=== PATIENT | male | born 1965 | race Caucasian/White ===

== ENCOUNTER 2018-01-10 06:55 | Day surgery (SDC) | payer OTHER, SELFPAY ==
[2018-01-10 07:14] VITALS: BP 117/77; PULSE 85; RESP 18; TEMP 36.6; O2SAT 100; BMI 24.0
--- NOTE | 2018-01-10 07:42 | H&P.OPEN ---
Past Medical/Surgical History - Planned Operation Planned Operative Procedure/s: colonoscopy open access Date of Operative Procedure: 01/10/18 Permit Signed: No S.O.S: No Is This Patient Having a Total Joint: No - Previous Hospitalizations/Surgeries HX Hospitalizations: No HX of Surgeries: deviated septum Any Problems With Anesthesia: No You/Your Family Experience Fever (Hyperthermia) With Anes: No Cholinesterase deficiency: No - Cardiovascular Hx Chest Pain within Last 2 months: No Hx of Irregular Heartbeat and/or Afib: No Hx Heart Attack: No Hx Congestive Heart Failure: No Hx Rheumatic Fever: No Hx Hypertension: No Hx Internal Defibrillator: No Hx Pacemaker: No Hx Cardiac Catheterization: No Hx Cardiac Surgery/Stents/Etc.: No Hx Stress Test: No HX Edema: No Hx Pain in Legs when Walking/Leg Cramps: No - Respiratory Chronic Cough: No HX of Shortness of Breath: No Hoarseness: No Hx Chronic Obstructive Pulmonary Disease (COPD): No Hx Asthma: No Hx Emphysema: No Hx Sleep Apnea: No Hx Oxygen Use at Home: No Hx Respiratory Tract Infection/Cold (presently): Yes - cold 2 weeks ago/resolved Do You Snore Loudly (louder than talking or can be heard): Yes Do You Often Feel Tired/ Fatigued/ Sleepy Dring Daytime?: Yes Has Anyone Observed You Stop Breathing During Sleep?: No Result (for STOP score): Positive Hx Smoking: No Smoking Status: Never smoker - Gastrointestinal Hx Gastroesophageal Reflux: Yes Controlled With Meds: No - no meds for 2 weeks Hx Gastrointestinal Disorders: No Hx Gastrointestinal Bleed: No Hx Ulcer: No Hx Hiatal Hernia: No Difficulty Chewing/Swallowing: No Recent Onset of Swallowing Problems: No Special diet followed at home: No Hx Unplanned Weight Loss of 20#: No HX Unplanned Weight Gain of 20#: No - Neurological Hx Seizures: No HX Syncope/Blackout Spells/Unconsciousness: No Hx CVA/Stroke: No Hx Transient Ischemic Attacks (TIA): No Hx Multiple Sclerosis: No Hx Parkinson's Disease: No Hx Head/Neck Injury: No Hx Headaches: No Hx Back Injury/Pain: No Recent Onset of Speech Difficulty: No Restless Legs: Yes Does patient have nerve stimulator: No Patient instructed to have device shut off: No Rep notified?: No - Blood Disorder Hx Leukemia: No Bleeding Tendencies: No Hx Deep Vein Thrombosis: No Hx High Cholesterol: No Blood Transmitted Disease: No Hx Hepatitis: No Hx Cirrhosis: No Hx Anemia: No Hx Blood Disorders: No - Genitourinary Hx Renal Disease: No - Musculoskeletal Hx Arthritis: No Hx Rheumatoid Arthritis: No Hx Gout: No Recent Onset of an Orthopedic Problem: No - Endocrine Hx Diabetes: No Thyroid Disease: No Hx Steroid Therapy: No - Psycho/Social Hx Substance Use: No Hx Alcohol Use: No Hx Anxiety: No Hx Depression: Yes - on med Mental Illness: No Hx Dementia: No - Miscellaneous Hx Cancer: No Recent Exposure to Contagious Disease: No Active MRSA: No Hx of C-Diff: No Any Loose Teeth: No Allergies Sulfa (Sulfonamide Antibiotics) Allergy (Verified 01/10/18 07:13) Other Home Medications Medication Instructions Recorded Isotretinoin [Absorica] 40 mg PO TU 01/07/18 Vortioxetine Hydrobromide 10 mg PO DAILY 01/07/18 [Brintellix] - Discharge Is Pt Admitted From a Custodial, or a Custodial: No Who Could Help: family After D/C, Where Do you Plan to Go: Return Home - Physical Exam General: Alert, Oriented x3, Cooperative Lungs: Normal air movement Cardiovascular: Regular rate, Regular Rhythm Abdomen: Soft, Non Tender, Non-Distended Vital Signs Temp Pulse Resp BP Pulse Ox 98 F 85 18 117/77 100 01/10/18 07:14 01/10/18 07:14 01/10/18 07:14 01/10/18 07:14 01/10/18 07:14 Oxygen Delivery Method Room Air Weight: 171 lb 15.369 oz Body Mass Index (BMI) 24.0 Assessment/Plan 52-year-old male for screening colonoscopy 1. Patient reports he has never had a colonoscopy in the past. He is not having any issues at this time. He complains of no abdominal pain or blood in his stool and he has no inadvertent weight loss. He has no family history of colon cancer. 2. I explained endoscopy in detail to the patient. I explained the risks including but not limited to stroke or heart attack with anesthesia, perforation of the GI tract, bleeding, infection. I explained that any of these could necessitate further emergency surgery. The patient understands and all questions were answered sufficiently. The patient wishes to proceed with procedure. Tee Santiago MD Pager: [facility] [address], [address] [place] [address] Office: Surgery Risks - Colonoscopy Risks Include but are not Limited To: Risks include but are not limited to: Bleeding, perforation requiring further surgery, inability to complete colonoscopy requiring barium enema.
[2018-01-10 08:12] VITALS: BP 100/64; BP 117/77; PULSE 63; RESP 16; TEMP 36.7; O2SAT 98
[2018-01-10 08:15] VITALS: BP 111/75; BP 117/77; PULSE 60; RESP 16; O2SAT 98
[2018-01-10 08:20] VITALS: BP 112/75; BP 117/77; PULSE 57; RESP 16; O2SAT 97
[2018-01-10 08:25] VITALS: BP 113/68; BP 117/77; RESP 18; TEMP 36.7; O2SAT 97
[2018-01-10 08:38] VITALS: BP 117/77
--- NOTE | 2018-01-10 09:15 | PCM.OPRPT ---
Problem List (1) Screen for colon cancer Status: Acute Report of Operation Date of Procedure: 01/10/18 Pre-Operative Diagnosis: Screening colonoscopy Post-Operative Diagnosis: Normal colonoscopy Surgery/Procedure Performed:: Colonoscopy Description of Procedure: The major risks and benefits associated with the procedure were explained to the patient in detail. The patient verbalized understanding and agreement with the same. The patient was brought to the endoscopy suite. After adequate sedation was achieved, the patient was placed in the left lateral decubitus position and a digital rectal exam was performed. This examination was within normal limits. A well-lubricated colonoscope was then inserted into the rectum and advanced under direct visualization to the level of the cecum. The bowel prep was good. The cecum was identified by both visual and anatomic landmarks. A photograph was taken of the end of the cecum. The scope was then fully withdrawn while examining the color, texture, anatomy and integrity of the mucosa from the cecum to the anal canal. The findings were consistent with normal colonic mucosa. Over 6 minutes were taken to examine the colonic mucosa. Upon reaching the rectum the scope was retroflexed to examine the distal rectal vault. The scope was then straightened and was completely retrieved upon exiting the anal canal and the procedure was terminated. The patient was then transferred to the recovery room in stable condition. Recommendations for follow up: 10 years
== END 2018-01-10 08:40 | disposition home or self-care (01) ==
LOC: EN 06:56 → AC 06:58
PROVIDERS: Family Provider Physician Assistant; PCP Physician Assistant; Visit Provider Surgery
PROC: 0DJD8ZZ Inspection of Lower Intestinal Tract, Via Natural or Artificial Opening Endoscopic (ICD-10-PCS; CPT 45378; principal; 2018-01-10 07:55)
DX: Z12.11 Encounter for screening for malignant neoplasm of colon (principal); K21.9 Gastro-esophageal reflux disease without esophagitis; F32.9 Major depressive disorder, single episode, unspecified
CPT/HCPCS: 45378; J7120

== ENCOUNTER → 2018-01-29 08:37 | Outpatient (CLI) | payer OTHER, SELFPAY | PROVIDERS: Visit Provider Nurse Practitioner Family | DX: R19.7 Diarrhea, unspecified (principal) | CPT/HCPCS: 87177; 87209; 87493; 87506 ==

== ENCOUNTER → 2018-02-19 13:56 | Outpatient (CLI) | payer OTHER, SELFPAY ==
[2018-02-19 16:04] LABS: CRP < 2.90 mg/L (0.0-3.0)
[2018-02-21 16:09] LABS: Endomysial Antibody IgA Negative (Negative)
[2018-02-21 17:02] LABS: Immunoglobulin A 168 mg/dL (90-386); t-Transglutaminase IgA <2 U/mL (0-3)
== END ==
PROVIDERS: Family Provider Physician Assistant; PCP Physician Assistant; Visit Provider Internal Medicine Gastroenterology
DX: R19.7 Diarrhea, unspecified (principal)
CPT/HCPCS: 36415; 82784; 83516; 86140; 86255

== ENCOUNTER → 2018-05-01 14:37 | Outpatient (CLI) | payer OTHER, SELFPAY ==
[2018-05-01 16:09] LABS: Absolute Lymphocyte Count 1.62 X10^3/ul (0.83-4.51); Absolute Neutrophil Count 4.6 X10^3/uL (2.0-7.7); Basophil# 0.01 X10^3/uL; Basophil% 0.1 % (0-1); Eosinophil# 0.07 X10^3/uL; Hematocrit 47.4 % (40-54); Lymphocyte # 1.62 X10^3/ul (4.0); Lymphocyte % 23.6 % (19-41); Mean Corp Hgb Conc 33.8 g/gl (32-36); Mean Corpuscular Hgb 30.4 pg (27.0-32.0); Mean Corpuscular Volume 89.9 fL (80-94); Mean Platelet Vol. 11.8 fl (6.2-12.0); Monocyte# 0.55 X10^3/uL; Neutrophil % 67.2 % (47-70); Platelet Count 182 K/mm3 (150-450); RBC Distribution Width CV 12.5 % (11.6-14.6); RBC Distribution Width SD 40.7 fl (35.1-43.9); Red Blood Count 5.27 M/mm3 (4.6-6.2); White Blood Count 6.9 K/mm3 (4.4-11.0)
[2018-05-01 16:12] LABS: POSITIVE COUNT NO; POSITIVE DIFFERENTIAL NO; POSITIVE MORPHOLOGY NO
[2018-05-01 16:30] LABS: ALB/GLOB Ratio 1.2 RATIO (0.9-2.4); AST(SGOT) 20 U/L (15-37); BUN 14 mg/dL (7-18); BUN/Creat Ratio 11.4 RATIO (10-20); Calcium,Total 9.1 mg/dL (8.5-10.1); Creatinine, Serum 1.23 mg/dL (0.70-1.30); EST Glomerular Filtration Rate 66 mL/min (>60); Est Glom Filt Rate - Afr Amer 80 mL/min (>60); Globulin 3.3 g/dL (2.2-4.2); Glucose 97 mg/dL (74-106); Protein, Total 7.3 g/dL (6.4-8.2)
[2018-05-01 16:31] LABS: Alanine Aminotransfer ALT/SGPT 27 U/L (16-61); Alkaline Phosphatase 108 U/L (45-117); Anion Gap 6 (5-15); Chloride 107 mmol/L (98-107); Potassium 4.1 mmol/L (3.5-5.1); Sodium Level 142 mmol/L (136-145); T4 Free Direct 1.05 ng/dL (0.76-1.46); Thyroid Stim Hormone (TSH) 1.07 uIU/mL (0.358-3.74)
[2018-05-02 08:15] LABS: Vitamin B12 474 pg/mL (211-911)
== END ==
PROVIDERS: Family Provider Internal Medicine; PCP Internal Medicine; Visit Provider Internal Medicine
DX: K52.9 Noninfective gastroenteritis and colitis, unspecified (principal)
CPT/HCPCS: 36415; 80053; 82306; 82607; 84439; 84443; 85025

== ENCOUNTER → 2018-06-25 15:34 | Outpatient (CLI) | payer OTHER, SELFPAY ==
[2018-07-01 09:44] LABS: Fats, Neutral Increased (.); Fats, Total Increased (.)
== END ==
PROVIDERS: Family Provider Internal Medicine; PCP Internal Medicine; Visit Provider Internal Medicine Gastroenterology
DX: R19.7 Diarrhea, unspecified (principal)
CPT/HCPCS: 82705

== ENCOUNTER → 2018-07-08 13:43 | Outpatient (CLI) | payer OTHER, SELFPAY | PROVIDERS: Family Provider Internal Medicine; PCP Internal Medicine; Referring Provider Internal Medicine Gastroenterology; Visit Provider Internal Medicine Gastroenterology | DX: R19.5 Other fecal abnormalities (principal) ==

== ENCOUNTER → 2018-07-16 14:50 | Outpatient (CLI) | payer OTHER, SELFPAY ==
--- NOTE | 2018-07-16 15:12 | CT_ITS ---
STUDY: CT ABDOMEN WITH CONTRAST REASON FOR EXAM: Male, 52 years old. Epigastric pain RADIATION DOSAGE (If Supplied By Facility): CTDIvol = ( 13.745 ) mGy, DLP = ( 610.95 ) mGycm TECHNIQUE: Transaxial images were obtained post I.V. administration of 100 ml of Isovue 300 contrast, and oral contrast. Sagittal and coronal images were reconstructed. Individualized dose optimization techniques were used for this CT. COMPARISON: None. FINDINGS: The visualized lung bases are unremarkable. The visualized portions of the heart are within normal limits. Within segment 4 of the liver there is a 1.9 x 1.3 cm peripherally enhancing rounded focus within appearance most consistent with an underlying hemangioma. There are two additional too small to characterize low-attenuation foci within the liver. Normal gallbladder and extrahepatic biliary system. Normal spleen. Normal pancreas. Normal bilateral adrenal glands. Normal right kidney. Within the left kidney there is a 1.8 x 1.7 cm round low-attenuation focus with a Hounsfield units of 38. There is an additional 1.4 x 1.2 cm round low-attenuation focus within the left kidney with a Hounsfield units of 36. Normal visualized stomach. Normal small intestine. Normal colon. The appendix is visualized and appears normal. Normal abdominal aorta. Normal inferior vena cava. Normal retroperitoneum. Normal abdominal wall. There are diffuse degenerative changes of the visualized lumbar spine. There are indeterminate round partially sclerotic foci within the sacrum measuring up to 2.2 x 1.6 cm and 2.[address]/Abdomen WITH IV Contrast IMPRESSION: Peripherally enhancing 1.9 x 1.3 cm focus associated with 2 small too characterize low-attenuation foci within the liver, may reflect underlying hemangiomas, recommend an abdominal MRI with contrast for further characterization. Indeterminate round low-attenuation foci within the left kidney that likely reflect underlying cysts, these may be further characterized with the abdominal MRI recommended above. Indeterminate sclerotic foci within the sacrum may be secondary to underlying hemangiomas, again an MRI may be useful for further characterization. Electronically Signed: Malissa Ingram MD at 16:02 EDT Tel , Service support ,
== END ==
PROVIDERS: Family Provider Internal Medicine; PCP Internal Medicine; Referring Provider Internal Medicine Gastroenterology; Visit Provider Internal Medicine Gastroenterology
DX: R10.9 Unspecified abdominal pain (principal); R19.5 Other fecal abnormalities
CPT/HCPCS: 74160; Q9967

== ENCOUNTER → 2018-08-13 12:28 | Outpatient (CLI) | payer OTHER, SELFPAY ==
--- NOTE | 2018-08-13 12:31 | MRI_ITS ---
STUDY: MRI ABDOMEN WITH AND WITHOUT CONTRAST REASON FOR EXAM: Male, 52 years old. Abdominal pain with bloating, diarrhea, liver lesion detected on CT of 07/16/2018 TECHNIQUE: Standardized fat and water weighted pulse sequences were obtained in all 3 orthogonal planes post contrast administration. 8 ml of Gadavist contrast material was administered intravenously for the contrast portion of the examination. COMPARISON: 07/16/2018 FINDINGS: Base of the chest is unremarkable. In the left hepatic lobe, there are 2 T2 bright lesions correlating to low-density cystic lesions evident on recent CT. Both lesions demonstrate restricted diffusion. Following IV contrast, there is peripheral, nodular enhancement with progressive filling on later images, compatible with hemangiomata. Similar but less distinct lesion in the right hepatic lobe has a similar enhancement pattern. Normal gallbladder and extrahepatic biliary system. Normal spleen. Normal pancreas. Normal bilateral adrenal glands. Normal right kidney. In the central left kidney, there is a 1.3 cm high T1, high T2 signal intensity lesion which does not demonstrate significant contrast enhancement. Immediately lateral to this lesion, there is a nonenhancing simple cyst. Visualized hollow viscus structures are unremarkable. No retroperitoneal adenopathy or bone marrow edema. There are degenerative changes at L5-S1. Sclerotic lesion evident on prior CT involving the sacrum is not clearly identified on this exam. MRI/MRI Abd WITH and W/O Contrast IMPRESSION: 1. Multiple hemangiomata of the liver, correlating lesions evident on prior CT. 2. Proteinaceous/hemorrhagic left renal cyst (Bosniak 2). Bosniak I cystic lesion of the left mid kidney laterally. No solid or suspicious renal masses. 3. The sclerotic lesion of the sacrum described on prior CT is not evaluated on this exam. Electronically Signed: Maxim Myers MD at 20:00 EST , Service support ,
== END ==
PROVIDERS: Family Provider Internal Medicine; PCP Internal Medicine; Referring Provider Internal Medicine Gastroenterology; Visit Provider Internal Medicine Gastroenterology
DX: D18.03 Hemangioma of intra-abdominal structures (principal); R93.2 Abnormal findings on diagnostic imaging of liver and biliary tract
CPT/HCPCS: 74183; A9585

== ENCOUNTER → 2019-06-24 09:24 | Outpatient (CLI) | payer OTHER, SELFPAY ==
[2019-06-24 08:55] VITALS: BMI 24.5
[2019-06-24 12:14] LABS: Hematocrit 44.9 % (40-54); Hemoglobin 14.7 g/dL (13.0-16.5); Mean Corp Hgb Conc 32.7 g/dL (32-36); Mean Corpuscular Hgb 29.8 pg (27.0-32.0); Mean Corpuscular Volume 91.1 fL (80-94); Mean Platelet Vol. 11.6 fl (6.2-12.0); Platelet Count 158 K/mm3 (150-450); RBC Distribution Width CV 12.3 % (11.6-14.6); RBC Distribution Width SD 40.9 fl (35.1-43.9); Red Blood Count 4.93 M/mm3 (4.6-6.2); White Blood Count 6.6 K/mm3 (4.4-11.0)
[2019-06-24 12:44] LABS: ALB/GLOB Ratio 1.2 RATIO (0.9-2.4); AST(SGOT) 17 U/L (15-37); Alanine Aminotransfer ALT/SGPT 23 U/L (16-61); Albumin, Serum 3.8 g/dL (3.2-5.0); Alkaline Phosphatase 115 U/L (45-117); Anion Gap 4 (5-15); BUN 15 mg/dL (7-18); BUN/Creat Ratio 12.1 RATIO (10-20); Calcium,Total 8.9 mg/dL (8.5-10.1); Chloride 109 mmol/L (98-107); Cholesterol 156 mg/dL (200); Creatinine, Serum 1.24 mg/dL (0.70-1.30); EST Glomerular Filtration Rate 65 mL/min (>60); Est Glom Filt Rate - Afr Amer 79 mL/min (>60); Globulin 3.1 g/dL (2.2-4.2); Glucose 91 mg/dL (74-106); High Density Lipoprotein 54 mg/dL; PSA,Total - Annual Screen 3.93 ng/mL (0.00-4.00); Potassium 4.2 mmol/L (3.5-5.1); Protein, Total 6.9 g/dL (6.4-8.2); Sodium Level 141 mmol/L (136-145); Thyroid Stim Hormone (TSH) 0.93 uIU/mL (0.358-3.74); Triglycerides 70 mg/dL; Very Low Density Lipoprotein 14 mg/dL (5-40)
== END ==
PROVIDERS: Family Provider Internal Medicine; PCP Internal Medicine; Visit Provider Nurse Practitioner Family
DX: F41.8 Other specified anxiety disorders (principal)
CPT/HCPCS: 36415; 80053; 80061; 84153; 84443; 85027; G0103

== ENCOUNTER → 2020-08-02 10:01 | Outpatient (CLI) | payer OTHER, SELFPAY ==
[2020-08-02 09:17] VITALS: BMI 25.1
[2020-08-02 12:15] LABS: Absolute Lymphocyte Count 1.63 X10^3/uL (0.83-4.51); Absolute Neutrophil Count 5.6 X10^3/uL (2.0-7.7); Basophil# 0.03 X10^3/uL; Basophil% 0.4 % (0-1); Eosinophil# 0.15 X10^3/uL; Eosinophils% 1.9 % (0-5); Hematocrit 47.5 % (40-54); Hemoglobin 15.7 g/dL (13.0-16.5); Lymphocyte # 1.63 X10^3/ul (4.0); Lymphocyte % 20.1 % (19-41); Mean Corp Hgb Conc 33.1 g/dL (32-36); Mean Corpuscular Hgb 29.8 pg (27.0-32.0); Mean Corpuscular Volume 90.1 fL (80-94); Mean Platelet Vol. 10.8 fl (6.2-12.0); Monocyte# 0.62 X10^3/uL; Monocyte% 7.7 % (0-10); NRBC Flagged by Analyzer 0 % (0-5); Neutrophil # 5.63 X10^3/uL (2.7-7.7); Neutrophil % 69.5 % (47-70); Platelet Count 193 K/mm3 (150-450); RBC Distribution Width CV 12.1 % (11.6-14.6); RBC Distribution Width SD 39.9 fl (35.1-43.9); Red Blood Count 5.27 M/mm3 (4.6-6.2); White Blood Count 8.1 K/mm3 (4.4-11.0)
[2020-08-02 12:42] LABS: ALB/GLOB Ratio 1.2 RATIO (0.9-2.4); AST(SGOT) 23 U/L (15-37); Alanine Aminotransfer ALT/SGPT 34 U/L (16-61); Alkaline Phosphatase 103 U/L (45-117); Anion Gap 4 (5-15); BUN 20 mg/dL (7-18); BUN/Creat Ratio 15.6 RATIO (10-20); Calcium,Total 9.2 mg/dL (8.5-10.1); Chloride 107 mmol/L (98-107); Cholesterol 199 mg/dL (200); Creatinine, Serum 1.28 mg/dL (0.70-1.30); EST Glomerular Filtration Rate 62 mL/min (>60); Est Glom Filt Rate - Afr Amer 75 mL/min (>60); Globulin 3.4 g/dL (2.2-4.2); Glucose 87 mg/dL (74-106); High Density Lipoprotein 54 mg/dL; PSA,Total - Annual Screen 3.85 ng/mL (0.00-4.00); Potassium 4.5 mmol/L (3.5-5.1); Protein, Total 7.4 g/dL (6.4-8.2); Sodium Level 139 mmol/L (136-145); Thyroid Stim Hormone (TSH) 1.33 uIU/mL (0.358-3.74); Triglycerides 73 mg/dL; Very Low Density Lipoprotein 15 mg/dL (5-40)
== END ==
PROVIDERS: PCP Internal Medicine; Referring Provider Nurse Practitioner Family; Visit Provider Nurse Practitioner Family
DX: Z00.00 Encounter for general adult medical examination without abnormal findings (principal)
CPT/HCPCS: 36415; 80053; 80061; 84153; 84443; 85025; G0103

== ENCOUNTER → 2020-08-25 09:30 | Outpatient (CLI) | payer OTHER, SELFPAY ==
[2020-08-02 09:17] VITALS: BMI 25.1
[2020-08-26 13:46] LABS: Semen Analysis Post Vas ABSENT
== END ==
PROVIDERS: PCP Internal Medicine; Visit Provider Nurse Practitioner Family
DX: Z98.52 Vasectomy status (principal)
CPT/HCPCS: 89321

== ENCOUNTER → 2021-08-04 09:22 | Outpatient (CLI) | payer OTHER, SELFPAY ==
[2021-08-04 12:36] LABS: Absolute Lymphocyte Count 1.74 X10^3/uL (0.83-4.51); Absolute Neutrophil Count 3.9 X10^3/uL (2.0-7.7); Basophil# 0.04 X10^3/uL; Basophil% 0.6 % (0-1); Eosinophils% 1.6 % (0-5); Hematocrit 46.3 % (40-54); Hemoglobin 15.6 g/dL (13.0-16.5); Lymphocyte # 1.74 X10^3/ul (0.83-4.51); Lymphocyte % 27.3 % (19-41); Mean Corp Hgb Conc 33.7 g/dL (32-36); Mean Corpuscular Hgb 30.4 pg (27.0-32.0); Mean Corpuscular Volume 90.3 fL (80-94); Mean Platelet Vol. 10.9 fl (6.2-12.0); Monocyte# 0.59 X10^3/uL; Monocyte% 9.3 % (0-10); NRBC Flagged by Analyzer 0 % (0-5); Neutrophil # 3.89 X10^3/uL (2.7-7.7); Platelet Count 163 K/mm3 (150-450); RBC Distribution Width CV 11.9 % (11.6-14.6); RBC Distribution Width SD 39.4 fl (35.1-43.9); Red Blood Count 5.13 M/mm3 (4.6-6.2); White Blood Count 6.4 K/mm3 (4.4-11.0)
[2021-08-04 12:49] LABS: ALB/GLOB Ratio 1.2 RATIO (0.9-2.4); Albumin, Serum 3.7 g/dL (3.2-5.0); Anion Gap 6 (5-15); Chloride 108 mmol/L (98-107); EST Glomerular Filtration Rate 59 mL/min (>60); Globulin 3.2 g/dL (2.2-4.2); Potassium 4.1 mmol/L (3.5-5.1); Protein, Total 6.9 g/dL (6.4-8.2); Sodium Level 142 mmol/L (136-145); Very Low Density Lipoprotein 21 mg/dL (5-40)
[2021-08-04 13:45] LABS: AST(SGOT) 20 U/L (15-37); Alanine Aminotransfer ALT/SGPT 25 U/L (16-61); Alkaline Phosphatase 92 U/L (45-117); BUN 17 mg/dL (7-18); Cholesterol 160 mg/dL (200); Creatinine, Serum 1.34 mg/dL (0.70-1.30); Est Glom Filt Rate - Afr Amer 71 mL/min (>60); Glucose 86 mg/dL (74-106); High Density Lipoprotein 47 mg/dL; PSA,Total - Annual Screen 3.97 ng/mL (0.00-4.00); Thyroid Stim Hormone (TSH) 1.87 uIU/mL (0.358-3.74); Triglycerides 106 mg/dL
== END ==
PROVIDERS: PCP Internal Medicine; Referring Provider Nurse Practitioner Family; Visit Provider Nurse Practitioner Family
DX: Z00.00 Encounter for general adult medical examination without abnormal findings (principal)
CPT/HCPCS: 36415; 80053; 80061; 84153; 84443; 85025; G0103

== ENCOUNTER → 2022-05-18 | Outpatient (CLI) | payer OTHER, SELFPAY ==
[2022-05-18 12:44] LABS: Absolute Lymphocyte Count 1.58 X10^3/uL (0.83-4.51); Absolute Neutrophil Count 4.2 X10^3/uL (2.0-7.7); Basophil# 0.02 X10^3/uL; Basophil% 0.3 % (0-1); Eosinophil# 0.09 X10^3/uL; Eosinophils% 1.4 % (0-5); Hematocrit 44.3 % (40-54); Hemoglobin 14.8 g/dL (13.0-16.5); Lymphocyte # 1.58 X10^3/ul (0.83-4.51); Lymphocyte % 24.5 % (19-41); Mean Corp Hgb Conc 33.4 g/dL (32-36); Mean Corpuscular Hgb 30.3 pg (27.0-32.0); Mean Corpuscular Volume 90.8 fL (80-94); Mean Platelet Vol. 10.9 fl (6.2-12.0); Monocyte% 7.7 % (0-10); NRBC Flagged by Analyzer 0 % (0-5); Neutrophil # 4.24 X10^3/uL (2.7-7.7); Neutrophil % 65.6 % (47-70); Platelet Count 194 K/mm3 (150-450); RBC Distribution Width CV 12.8 % (11.6-14.6); RBC Distribution Width SD 42.4 fl (35.1-43.9); Red Blood Count 4.88 M/mm3 (4.6-6.2); White Blood Count 6.5 K/mm3 (4.4-11.0)
[2022-05-18 12:55] LABS: ALB/GLOB Ratio 1.3 RATIO (0.9-2.4); AST(SGOT) 19 U/L (15-37); Alanine Aminotransfer ALT/SGPT 22 U/L (16-61); Albumin, Serum 3.9 g/dL (3.2-5.0); Alkaline Phosphatase 76 U/L (45-117); Anion Gap 4 (5-15); BUN 12 mg/dL (7-18); BUN/Creat Ratio 9.2 RATIO (10-20); Calcium,Total 9.1 mg/dL (8.5-10.1); Chloride 107 mmol/L (98-107); Cholesterol 152 mg/dL (200); Creatinine, Serum 1.31 mg/dL (0.70-1.30); EST Glomerular Filtration Rate 60 mL/min (>60); Est Glom Filt Rate - Afr Amer 73 mL/min (>60); Globulin 2.9 g/dL (2.2-4.2); Glucose 95 mg/dL (74-106); High Density Lipoprotein 54 mg/dL; PSA,Total - Annual Screen 7.32 ng/mL (0.00-4.00); Potassium 4.5 mmol/L (3.5-5.1); Protein, Total 6.8 g/dL (6.4-8.2); Sodium Level 139 mmol/L (136-145); Thyroid Stim Hormone (TSH) 1.77 uIU/mL (0.358-3.74); Triglycerides 82 mg/dL; Very Low Density Lipoprotein 16 mg/dL (5-40)
== END | disposition home or self-care (01) ==
LOC: BIMLAB 10:13
PROVIDERS: PCP Internal Medicine; Referring Provider Nurse Practitioner Family; Visit Provider Nurse Practitioner Family
DX: Z00.00 Encounter for general adult medical examination without abnormal findings (principal)
CPT/HCPCS: 36415; 80053; 80061; 84153; 84443; 85025; G0103

== ENCOUNTER → 2022-07-03 | Outpatient (CLI) | payer OTHER, SELFPAY ==
--- NOTE | 2022-07-03 08:00 | PROSBIL_PTH ---
PATIENT: MOLLY PAINTING LOC: [facility] U#:[id number] AGE/SX: 56/M ROOM: RE07/03/[address]: Dr. Victor M Cherry MD : 1965 BED: DIS: 07/03/2022 SPEC #: [id number] RECD: 07/03/22 16:13 STATUS: MIGUEL ANGEL MUSE #: [id number] SOLE: 07/03/22 08:[address]: Victor M Cherry DEPT: SURGICAL PATHOLOGY RECD BY: Sunil Pineda ENTERED: 07/04/22 07:48 SP TYPE: PROST BX MARLEE DR: Dr. Krystle Fleming MD Tissues: A - PROSTATE RIGHT B - PROSTATE RIGHT C - PROSTATE RIGHT D - PROSTATE LEFT E - PROSTATE LEFT F - PROSTATE LEFT Procedures: PROSTATE BX HEADER OPERATION: Prostate biopsy PRE-OP DIAGNOSIS: Elevated PSA R97.20 TISSUE SUBMITTED: A - Right apex, B - Right mid, C - Right base, D - Left apex, E - Left mid, F - Left base MICROSCOPIC DIAGNOSIS A. Right prostate, apex, core biopsy: Prostatic tissue, negative for malignancy. B. Right prostate, mid, core biopsy: Prostatic tissue, negative for malignancy. Focal minimal acute and chronic inflammation. C. Right prostate, base, core biopsy: Prostatic tissue, negative for malignancy. D. Left prostate, apex, core biopsy: Focal minimal high-grade prostatic intraepithelial neoplasia (HGPIN). E. Left prostate, mid, core biopsy: Focal high-grade prostatic intraepithelial neoplasia (HGPIN). F. Left prostate, base, core biopsy: Focal minimal high-grade prostatic intraepithelial neoplasia (HGPIN). SJ:lorraine 07/05/2022 MICROSCOPIC DESCRIPTION Slides are reviewed. GROSS DESCRIPTION A - Received is one container designated prostate, right apex. The specimen consists of one elongated fragment of light cruz-white soft tissue measuring 1.5 cm in length and 0.1 cm in diameter. The specimen is totally submitted in one cassette. B - Received is one container designated prostate, right mid. The specimen consists of two elongated fragments of light cruz-white soft tissue measuring 1 and 1.6 cm in length and 0.1 cm in diameter. The specimen is totally submitted in one cassette. C - Received is one container designated prostate, right base. The specimen consists of two elongated fragments of light cruz-white soft tissue each measuring 1.5 cm in length and 0.1 cm in diameter. The specimen is totally submitted in one cassette. D - Received is one container designated prostate, left apex. The specimen consists of one elongated fragment of light cruz-white soft tissue measuring 1.5 cm in length and 0.1 cm in diameter. The specimen is totally submitted in one cassette. E - Received is one container designated prostate, left mid. The specimen consists of two elongated fragments of light cruz-white soft tissue measuring 1 and 1.5 cm in length and 0.1 cm in diameter. The specimen is totally submitted in one cassette. F - Received is one container designated prostate, left base. The specimen consists of two elongated fragments of light cruz-white soft tissue each measuring 1.5 cm in length and 0.1 cm in diameter. The specimen is totally submitted in one cassette. / SJ:rg 07/04/2022 TC:5 CPT: 94247 x6
== END | disposition home or self-care (01) ==
LOC: LABSPEC 16:15
PROVIDERS: PCP Internal Medicine; Referring Provider Urology; Visit Provider Urology
DX: R97.20 Elevated prostate specific antigen [PSA] (principal)
CPT/HCPCS: 88305; G0416

== ENCOUNTER → 2023-01-22 | Outpatient (CLI) | payer OTHER, SELFPAY ==
[2023-01-22 13:15] LABS: PSA,Total- Diagnostic 5.24 ng/mL (0.0-4.0)
== END | disposition home or self-care (01) ==
LOC: BIMLAB 10:23
PROVIDERS: PCP Internal Medicine; Referring Provider Urology; Visit Provider Urology
DX: R97.20 Elevated prostate specific antigen [PSA] (principal)
CPT/HCPCS: 36415; 84153

== ENCOUNTER → 2023-07-12 | Outpatient (CLI) | payer OTHER, SELFPAY ==
[2023-07-12 15:09] LABS: Absolute Lymphocyte Count 1.31 X10^3/uL (0.83-4.51); Absolute Neutrophil Count 3.8 X10^3/uL (2.0-7.7); Basophil# 0.04 X10^3/uL; Basophil% 0.7 % (0-1); Eosinophil# 0.13 X10^3/uL; Eosinophils% 2.2 % (0-5); Hematocrit 46.6 % (40-54); Hemoglobin 15.2 g/dL (13.0-16.5); Lymphocyte # 1.31 X10^3/ul (0.83-4.51); Lymphocyte % 22.3 % (19-41); Mean Corp Hgb Conc 32.6 g/dL (32-36); Mean Corpuscular Volume 92.1 fL (80-94); Mean Platelet Vol. 10.2 fl (6.2-12.0); Monocyte# 0.55 X10^3/uL; Monocyte% 9.4 % (0-10); NRBC Flagged by Analyzer 0 % (0-5); Neutrophil # 3.82 X10^3/uL (2.7-7.7); Neutrophil % 65.1 % (47-70); Platelet Count 153 K/mm3 (150-450); RBC Distribution Width CV 12.4 % (11.6-14.6); Red Blood Count 5.06 M/mm3 (4.6-6.2); White Blood Count 5.9 K/mm3 (4.4-11.0)
[2023-07-12 15:31] LABS: ALB/GLOB Ratio 1.3 RATIO (0.9-2.4); AST(SGOT) 24 U/L (15-37); Alanine Aminotransfer ALT/SGPT 35 U/L (16-61); Albumin, Serum 3.8 g/dL (3.2-5.0); Alkaline Phosphatase 100 U/L (45-117); Anion Gap 0 (5-15); BUN 17 mg/dL (7-18); BUN/Creat Ratio 14.5 RATIO (10-20); Calcium,Total 8.6 mg/dL (8.5-10.1); Chloride 111 mmol/L (98-107); Cholesterol 150 mg/dL (200); Creatinine, Serum 1.17 mg/dL (0.70-1.30); EST Glomerular Filtration Rate 68 mL/min (>60); Est Glom Filt Rate - Afr Amer 83 mL/min (>60); Glucose 89 mg/dL (74-106); High Density Lipoprotein 49 mg/dL; PSA,Total - Annual Screen 7.09 ng/mL (0.00-4.00); Potassium 4.6 mmol/L (3.5-5.1); Protein, Total 6.8 g/dL (6.4-8.2); Sodium Level 141 mmol/L (136-145); Triglycerides 100 mg/dL; Very Low Density Lipoprotein 20 mg/dL (5-40)
== END | disposition home or self-care (01) ==
LOC: BIMLAB 11:46
PROVIDERS: PCP Internal Medicine; Visit Provider Internal Medicine
DX: Z00.00 Encounter for general adult medical examination without abnormal findings (principal); Z12.5 Encounter for screening for malignant neoplasm of prostate
CPT/HCPCS: 36415; 80053; 80061; 84153; 85025; G0103

== ENCOUNTER → 2024-04-13 | Outpatient (CLI) | payer OTHER, SELFPAY ==
[2024-04-13 12:50] LABS: PSA,Total- Diagnostic < 0.01 ng/mL (0.0-4.0)
== END | disposition home or self-care (01) ==
LOC: BIMLAB 10:05
PROVIDERS: PCP Internal Medicine
DX: C61 Malignant neoplasm of prostate (principal)
CPT/HCPCS: 36415; 84153

== ENCOUNTER → 2024-07-15 | Outpatient (CLI) | payer OTHER, SELFPAY ==
[2024-07-15 12:01] LABS: Hematocrit 44.8 % (40-54); Mean Corp Hgb Conc 33.5 g/dL (32-36); Mean Corpuscular Volume 89.6 fL (80-94); Mean Platelet Vol. 10.8 fl (6.2-12.0); Platelet Count 146 K/mm3 (150-450); RBC Distribution Width CV 13.1 % (11.6-14.6); RBC Distribution Width SD 42.7 fl (35.1-43.9); White Blood Count 6.2 K/mm3 (4.4-11.0)
[2024-07-15 15:52] LABS: ALB/GLOB Ratio 1.2 RATIO (0.9-2.4); AST(SGOT) 26 U/L (15-37); Alanine Aminotransfer ALT/SGPT 32 U/L (16-61); Albumin, Serum 3.8 g/dL (3.2-5.0); Alkaline Phosphatase 103 U/L (45-117); Anion Gap 3 (5-15); BUN 14 mg/dL (7-18); BUN/Creat Ratio 11.4 RATIO (10-20); Chloride 110 mmol/L (98-107); Cholesterol 168 mg/dL (200); Creatinine, Serum 1.23 mg/dL (0.70-1.30); EST Glomerular Filtration Rate 64 mL/min (>60); Est Glom Filt Rate - Afr Amer 78 mL/min (>60); Globulin 3.1 g/dL (2.2-4.2); Glucose 83 mg/dL (74-106); High Density Lipoprotein 48 mg/dL; PSA,Total - Annual Screen < 0.01 ng/mL (0.00-4.00); Potassium 4.2 mmol/L (3.5-5.1); Protein, Total 6.9 g/dL (6.4-8.2); Sodium Level 140 mmol/L (136-145); Triglycerides 122 mg/dL; Very Low Density Lipoprotein 24 mg/dL (5-40)
== END | disposition home or self-care (01) ==
LOC: BIMLAB 11:19
PROVIDERS: PCP Internal Medicine; Referring Provider Physician Assistant; Visit Provider Physician Assistant
DX: Z00.00 Encounter for general adult medical examination without abnormal findings (principal); R97.20 Elevated prostate specific antigen [PSA]
CPT/HCPCS: 36415; 80053; 80061; 84153; 85027; G0103

== ENCOUNTER → 2024-10-28 | Outpatient (CLI) | payer BC, SELFPAY ==
[2024-10-28 13:10] LABS: PSA,Total- Diagnostic < 0.01 ng/mL (0.0-4.0)
== END | disposition home or self-care (01) ==
LOC: BIMLAB 10:30
PROVIDERS: PCP Internal Medicine
DX: C61 Malignant neoplasm of prostate (principal)
CPT/HCPCS: 36415; 84153

== ENCOUNTER → 2025-04-21 | Outpatient (CLI) | payer BC, SELFPAY ==
[2025-04-21 17:46] LABS: PSA,Total- Diagnostic < 0.02 ng/mL (0.00-4.00)
== END | disposition home or self-care (01) ==
LOC: BIMLAB 11:37
PROVIDERS: PCP Internal Medicine
DX: C61 Malignant neoplasm of prostate (principal)
CPT/HCPCS: 36415; 84153

== ENCOUNTER → 2025-07-14 | Outpatient (CLI) | payer BC, SELFPAY ==
[2025-07-14 12:49] LABS: Hematocrit 43.6 % (40-54); Hemoglobin 15.2 g/dL (13.0-16.5); Immature Granulocytes Count 0.030 X10^3/uL (0.0-0.0); Mean Corp Hgb Conc 34.9 g/dL (32-36); Mean Corpuscular Volume 87.2 fL (80-94); Mean Platelet Vol. 10.8 fl (6.2-12.0); NRBC Flagged by Analyzer 0 % (0-5); Platelet Count 142 K/mm3 (150-450); RBC Distribution Width CV 12.5 % (11.6-14.6); RBC Distribution Width SD 39.8 fl (35.1-43.9); Red Blood Count 5.00 M/mm3 (4.6-6.2); White Blood Count 6.9 K/mm3 (4.4-11.0)
[2025-07-14 13:05] LABS: AST(SGOT) 24 U/L (<=37); Alanine Aminotransfer ALT/SGPT 19 U/L (<=46); Albumin, Serum 4.2 g/dL (3.5-5.0); Alkaline Phosphatase 97 U/L (40-129); Anion Gap 10 (5-15); BUN 20 mg/dL (4-19); BUN/Creat Ratio 17.4 RATIO (10-20); Calcium,Total 9.2 mg/dL (7.6-11.0); Carbon Dioxide 22.5 mmol/L (21.0-32.0); Chloride 110 mmol/L (98-108); Cholesterol 160 mg/dL (<=200); Globulin 2.3 g/dL (2.2-4.2); Glucose 90 mg/dL (70-99); Low Density Lipoprotein Calc. 91 mg/dL; Potassium 4.7 mmol/L (3.3-5.1); Triglycerides 120 mg/dL; Very Low Density Lipoprotein 24 mg/dL (5-40); cholesterol:hdl ratio screen 3.52
== END | disposition home or self-care (01) ==
PROVIDERS: PCP Internal Medicine; Referring Provider Physician Assistant; Visit Provider Physician Assistant
DX: Z00.00 Encounter for general adult medical examination without abnormal findings (principal)
CPT/HCPCS: 36415; 80053; 80061; 85025